=== PATIENT | female | born 1990 | race African-American/Black ===

== ENCOUNTER 2017-05-02 16:40 | Emergency (ER) | payer SELFPAY ==
[~2017-05-02] VITALS: Ht 167.6 cm; Wt 109.0 kg
[~2017-05-02 16:40] MED LIST: pain meds
[2017-05-02] MEDS ORDERED: ONDANSETRON HCL 4MG/2ML VIAL IV STA (21:24)
[2017-05-02] MEDS ORDERED: SODIUM CHLORIDE 0.9% 1,000 ML IV ONE (21:24)
[2017-05-02] MEDS ORDERED: MORPHINE SULFATE 4 MG/ML CPJ (NOT FOR IM USE) IV STA (21:24)
[2017-05-02] MEDS ORDERED: LIDOCAINE HCL 1%/EPI 1:200,000 30 ML VIAL MC ONE (21:30)
[2017-05-02] MEDS ORDERED: CEFAZOLIN 1000MG PREMIX 50 ML IV ONE (21:30)
[2017-05-02 21:59] LABS: BASOPHILS % 0.5 % (0.0-2.0); EOSINOPHILS % 2.1 % (0.0-5.0); HEMATOCRIT. 37.4 % (36.0-48.0); HEMOGLOBIN. 12.1 g/dL (12.0-16.0); LYMPHOCYTES % 25.7 % (20.0-50.0); MEAN CORPUSCULAR HEMOGLOBIN 24.5 pg (28.0-32.0); MEAN CORPUSCULAR VOLUME 75.7 fL (81.0-99.0); MEAN PLATELET VOLUME 8.1 fl (7.4-10.4); MONOCYTES % 3.7 % (2.0-8.0); PLATELET 352 x1000/uL (130-400); RED BLOOD CELL COUNT 4.94 mill/uL (4.2-5.4); RED CELL DISTRIBUTION WIDTH 15.4 % (11.6-14.6)
[2017-05-02 22:01] LABS: CHLORIDE 100 mEq/L (98-107)
[2017-05-02 22:09] LABS: CARBON DIOXIDE 25 mEq/L (21-32)
[2017-05-02 22:23] LABS: HCG SCREEN NEGATIVE
[2017-05-02 23:09] VITALS: BP 159/82
[2017-05-02] MEDS ORDERED: MORPHINE SULFATE 4 MG/ML CPJ (NOT FOR IM USE) IV ONE (23:15)
[2017-05-02] MEDS ORDERED: ONDANSETRON HCL 4MG/2ML VIAL IV ONE (23:15)
[2017-05-02] MEDS ORDERED: KETOROLAC 30MG/ML VIAL IV ONE (23:15)
== END 2017-05-03 00:30 | disposition home or self-care (01) ==
LOC: ER 21:30
DX: L02.211 Cutaneous abscess of abdominal wall (principal); E11.65 Type 2 diabetes mellitus with hyperglycemia; F17.210 Nicotine dependence, cigarettes, uncomplicated; F12.10 Cannabis abuse, uncomplicated; Z88.6 Allergy status to analgesic agent; Z88.2 Allergy status to sulfonamides
CPT/HCPCS: 10060; 36415; 80053; 84703; 85025; 96365; 96375; 96376; 99285; J0690; J1885; J2270; J2405; J7030; Z7610

== ENCOUNTER 2017-05-07 09:18 | Emergency (ER) | payer SELFPAY ==
[~2017-05-07] VITALS: Ht 167.6 cm; Wt 109.0 kg
[2017-05-07 12:13] VITALS: BP 138/78
== END 2017-05-07 14:58 | disposition home or self-care (01) ==
LOC: ER 13:05
DX: L02.211 Cutaneous abscess of abdominal wall (principal); F12.10 Cannabis abuse, uncomplicated; Z88.2 Allergy status to sulfonamides; Z88.5 Allergy status to narcotic agent
CPT/HCPCS: 99283; Z7610

== ENCOUNTER 2017-09-28 10:20 | Emergency (ER) | payer MEDICAID ==
[~2017-09-28] VITALS: Ht 167.6 cm; Wt 105.0 kg
[2017-09-28] MEDS ORDERED: LIDOCAINE HCL 1%/EPI 1:200,000 30 ML VIAL MC ONE (14:15)
[2017-09-28] MEDS ORDERED: POVIDONE-IODINE 10% TOPICAL SOLN 240ML TOP ONE (14:15)
[2017-09-28] MEDS ORDERED: IBUPROFEN 600MG TABLET PO ONE (14:15)
[2017-09-28] MEDS ORDERED: HYDROCODONE/ACETAMINOPHEN 5/325MG TABLET PO ONE (15:15)
[2017-09-28 15:57] VITALS: BP 145/91
== END 2017-09-28 16:00 | disposition home or self-care (01) ==
LOC: ER 12:27
DX: N76.4 Abscess of vulva (principal); F12.10 Cannabis abuse, uncomplicated; Z88.6 Allergy status to analgesic agent; Z88.2 Allergy status to sulfonamides
CPT/HCPCS: 10060; 99283; A4246

== ENCOUNTER 2017-10-01 07:33 | Emergency (ER) | payer MEDICAID ==
[~2017-10-01] VITALS: Ht 167.6 cm; Wt 109.0 kg
[2017-10-01 08:00] VITALS: BP 167/99
[2017-10-01] MEDS ORDERED: LIDOCAINE HCL 1% 20ML VIAL (Pyxis) INJ INFIL ONE (10:30)
== END 2017-10-01 11:43 | disposition home or self-care (01) ==
LOC: ER 07:36
DX: L02.31 Cutaneous abscess of buttock (principal); F12.10 Cannabis abuse, uncomplicated; Z88.5 Allergy status to narcotic agent; Z88.2 Allergy status to sulfonamides
CPT/HCPCS: 10060; 99283; J3490

== ENCOUNTER 2018-04-24 20:14 | Emergency (ER) | payer MEDICAID ==
[~2018-04-24] VITALS: Ht 165.1 cm; Wt 104.0 kg
[2018-04-24] MEDS ORDERED: LIDOCAINE HCL/PF 1% 10 MG/ML 5ML VIAL IJ ONE (22:45)
[2018-04-24] MEDS ORDERED: KETOROLAC 60MG/2ML VIAL IM STA (22:45)
[2018-04-24] MEDS ORDERED: BACITRACIN ZINC OINT UDPKT TOP ONE (22:45)
[2018-04-25 00:07] VITALS: BP 138/92
== END 2018-04-25 00:18 | disposition home or self-care (01) ==
LOC: ER 21:36
DX: N61.1 Abscess of the breast and nipple (principal); F12.10 Cannabis abuse, uncomplicated; Z88.2 Allergy status to sulfonamides; Z88.5 Allergy status to narcotic agent; Z79.899 Other long term (current) drug therapy
CPT/HCPCS: 10060; 96372; 99284; J1885; J3490; Z7610

== ENCOUNTER 2019-04-05 04:01 | Emergency (ER) | payer MEDICAID ==
[~2019-04-05] VITALS: Ht 165.1 cm; Wt 109.0 kg
[2019-04-05] MEDS ORDERED: SODIUM CHLORIDE 0.9% 1000ML BAG (SEPSIS BOLUS) IV ONE (04:30)
[2019-04-05 04:45] LABS: BASOPHILS % 0.6 % (0.0-2.0); EOSINOPHILS % 1.5 % (0.0-5.0); HEMATOCRIT. 33.4 % (36.0-48.0); HEMOGLOBIN. 11.1 g/dL (12.0-16.0); LYMPHOCYTES % 18.5 % (20.0-50.0); MEAN CORPUSCULAR HEMOGLOBIN 25.7 pg (28.0-32.0); MONOCYTES % 3.8 % (2.0-8.0); NEUTROPHILS % 75.6 % (40.0-76.0); PLATELET 395 x1000/uL (130-400); RED BLOOD CELL COUNT 4.34 mill/uL (4.2-5.4)
[2019-04-05 04:52] LABS: CHLORIDE 101 mEq/L (98-107)
[2019-04-05] MEDS ORDERED: INSULIN REGULAR (HUMULIN R) 300UNITS/3ML SUBCUT ONE (07:15)
[2019-04-05] MEDS ORDERED: BACITRACIN ZINC OINT UDPKT TOP ONE (07:15)
[2019-04-05] MEDS ORDERED: CLINDAMYCIN 600 MG in DEXTROSE 5% WATER 50 ML IV ONE (07:15)
[2019-04-05] MEDS ORDERED: LIDOCAINE HCL/PF 1% 10 MG/ML 5ML VIAL IJ ONE (07:15)
[2019-04-05 07:35] LABS: CLARITY URINE CLEAR (CLEAR); COLOR URINE YELLOW (YELLOW); KETONES URINE NEGATIVE (NEGATIVE); LEUKOCYTE ESTERASE URINE NEGATIVE (NEGATIVE); NITRITE URINE NEGATIVE (NEGATIVE); OCCULT BLOOD URINE 3+ (NEGATIVE); PH URINE 6.5 (4.5-8.0); PROTEIN URINE TRACE (NEGATIVE); SPECIFIC GRAVITY URINE 1.021 (1.005-1.030); UROBILINOGEN URINE 0.2 E.U./dL (0.2-1.0)
[2019-04-05] MEDS ORDERED: KETOROLAC 15MG/ML VIAL IV ONE (08:15)
[2019-04-05] MEDS ORDERED: CLINDAMYCIN 600MG PREMIX 50 ML IV ONE (08:45)
[2019-04-05 09:57] VITALS: BP 146/88
[2019-04-05] MEDS ORDERED: METRONIDAZOLE 500MG TABLET PO ONE (10:15)
== END 2019-04-05 11:13 | disposition home or self-care (01) ==
LOC: ER 04:01
DX: N61.1 Abscess of the breast and nipple (principal); A59.01 Trichomonal vulvovaginitis; E11.65 Type 2 diabetes mellitus with hyperglycemia; F12.10 Cannabis abuse, uncomplicated; Z76.0 Encounter for issue of repeat prescription; Z88.5 Allergy status to narcotic agent; Z88.2 Allergy status to sulfonamides; Z90.89 Acquired absence of other organs
CPT/HCPCS: 10060; 36415; 71045; 80053; 81003; 82962; 83605; 84145; 84484; 85025; 85610; 87040; 87077; 87086; 93005; 96361; 96365; 96372; 96375; 99284; J1815; J1885; J3490; J7030; Z7610; J7060

== ENCOUNTER 2019-10-17 14:20 | Emergency (ER) | payer MEDICAID ==
[~2019-10-17] VITALS: Ht 165.1 cm; Wt 118.0 kg
[2019-10-17] MEDS ORDERED: LIDOCAINE 1%/EPI 1:100,000 10 ML VIAL IJ ONE (15:45)
[2019-10-17] MEDS ORDERED: BACITRACIN ZINC OINT UDPKT TOP ONE (15:45)
[2019-10-17] MEDS ORDERED: ACETAMINOPHEN 500MG TABLET PO ONE (15:45)
[2019-10-17] MEDS ORDERED: IBUPROFEN 800MG TABLET PO ONE (15:45)
[2019-10-17] MEDS ORDERED: LIDOCAINE HCL/EPINEPHRINE 1%-EPI 1:100,000 20 ML VIAL INFIL ONE (16:00)
[2019-10-17 18:13] VITALS: BP 146/75
== END 2019-10-17 16:30 | disposition home or self-care (01) ==
LOC: ER 14:20
DX: L05.01 Pilonidal cyst with abscess (principal); R50.9 Fever, unspecified; F12.10 Cannabis abuse, uncomplicated; Z88.2 Allergy status to sulfonamides; Z88.5 Allergy status to narcotic agent
CPT/HCPCS: 10080; 81025; 87804; 99284; J3490

== ENCOUNTER 2019-10-21 22:25 | Inpatient (IN) | payer MEDICAID ==
[~2019-10-21] VITALS: Ht 165.1 cm; Wt 112.9 kg
[2019-10-22] MEDS ORDERED: KETOROLAC 30MG/ML VIAL IV STA (00:51)
[2019-10-22] MEDS ORDERED: SODIUM CHLORIDE 0.9% 1,000 ML IV ONE (00:51)
[2019-10-22] MEDS ORDERED: ONDANSETRON HCL 4MG/2ML INJ IV STA (00:51)
[2019-10-22] MEDS ORDERED: CLINDAMYCIN 600 MG in DEXTROSE 5% WATER 50 ML IV ONE (01:00)
[2019-10-22] MEDS ORDERED: CLINDAMYCIN 600MG PREMIX 50 ML IV ONE (02:00)
[2019-10-22 02:06] LABS: CHLORIDE 97 mEq/L (98-107)
[2019-10-22 02:06] LABS: CLARITY URINE CLOUDY (CLEAR); COLOR URINE YELLOW (YELLOW); KETONES URINE 2+ (NEGATIVE); LEUKOCYTE ESTERASE URINE 1+ (NEGATIVE); NITRITE URINE NEGATIVE (NEGATIVE); OCCULT BLOOD URINE 3+ (NEGATIVE); PROTEIN URINE 2+ (NEGATIVE); SPECIFIC GRAVITY URINE 1.035 (1.005-1.030)
[2019-10-22 02:12] LABS: BASOPHILS % 0.6 % (0.0-2.0); EOSINOPHILS % 1.4 % (0.0-5.0); HEMATOCRIT. 32.6 % (36.0-48.0); HEMOGLOBIN. 10.7 g/dL (12.0-16.0); LYMPHOCYTES % 20.6 % (20.0-50.0); MEAN CORPUSCULAR HEMOGLOBIN 24.5 pg (28.0-32.0); MEAN CORPUSCULAR VOLUME 74.7 fL (81.0-99.0); MEAN PLATELET VOLUME 7.7 fl (7.4-10.4); NEUTROPHILS % 71.4 % (40.0-76.0); PLATELET 558 x1000/uL (130-400); RED BLOOD CELL COUNT 4.37 mill/uL (4.2-5.4); RED CELL DISTRIBUTION WIDTH 15.1 % (11.6-14.6)
[2019-10-22] MEDS ORDERED: ONDANSETRON HCL 4MG/2ML INJ IV ONE (02:30)
[2019-10-22] MEDS ORDERED: IPRATROPIUM/ALBUTEROL 0.5-3(2.5)MG/3ML NEB NEB PRN (06:30)
[2019-10-22] MEDS ORDERED: DIPHENHYDRAMINE 50MG/ML VIAL IV PRN (06:30)
[2019-10-22] MEDS ORDERED: VANCOMYCIN 1 G PREMIX 200 ML IV SCH (06:30)
[2019-10-22] MEDS ORDERED: ACETAMINOPHEN 325MG TABLET PO PRN (06:30)
[2019-10-22] MEDS ORDERED: DEXTROSE 50% WATER 50ML SYRINGE IV PRN (06:30)
[2019-10-22] MEDS ORDERED: ENOXAPARIN 40MG/0.4ML SYR SUBCUT SCH (06:30)
[2019-10-22] MEDS ORDERED: DOCUSATE SODIUM 100MG CAPSULE PO PRN (06:30)
[2019-10-22] MEDS ORDERED: NA PHOS,M-B/NA PHOS,DI-BA ENEMA 118ML PR PRN (06:30)
[2019-10-22] MEDS ORDERED: IOHEXOL-300 100 ML BOTTLE ONE (07:29)
[2019-10-22] MEDS: SODIUM CHLORIDE 0.45% 1,000 ML IV SCH (07:45)
[2019-10-22] MEDS: ONDANSETRON HCL 4MG/2ML INJ IV PRN (07:57)
[2019-10-22] MEDS ORDERED: HYDRALAZINE 20MG/ML VIAL IV PRN ×2 (08:45→15:00)
[2019-10-22] MEDS ORDERED: PIPERACILLIN/TAZ 3.375G PREMIX 50 ML IV NR (08:45)
[2019-10-22] MEDS: ENOXAPARIN 30MG/0.3ML SYR SUBCUT SCH ×2 (09:00→21:06)
[2019-10-22] MEDS ORDERED: VANCOMYCIN 2,000 MG in DEXT 5% WATER 500 ML IV NR (09:00)
[2019-10-22] MEDS: BLOOD SUGAR DIAGNOSTIC STRIP TEST SCH ×4 (09:21→21:06)
[2019-10-22] MEDS: INSULIN LISPRO 100 UNITS/ML SUBCUT SCH ×4 (09:29→21:05)
[2019-10-22] MEDS: HYDROCODONE/ACETAMINOPHEN 10/325MG TABLET PO PRN (11:09)
[2019-10-22] MEDS: MAGNESIUM/ALUMINUM HYDROXIDE/SIMETHICONE 30ML UDC PO PRN (12:33)
[2019-10-22] MEDS: CLONIDINE 0.1MG TABLET PO PRN (13:50)
[2019-10-22] MEDS: SODIUM CHLORIDE 0.9% INJ 3ML FLUSH IVF SCH ×2 (14:00→21:06)
[2019-10-22] MEDS ORDERED: INSULIN LISPRO 100 UNITS/ML SUBCUT NR (14:45)
[2019-10-22 16:00] VITALS: BP 189/99
[2019-10-22] MEDS: MORPHINE SULFATE 2 MG/ML CPJ (NOT FOR IM USE) IV PRN (16:43)
[2019-10-22] MEDS: LORAZEPAM 2MG/ML CPJ IV PRN (16:43)
[2019-10-22] MEDS: PIPERACILLIN/TAZ 3.375G PREMIX 50 ML IV SCH (17:29)
[2019-10-22 19:00] VITALS: BP 149/95
[2019-10-22 20:00] VITALS: BP 155/85
[2019-10-22] MEDS: VANCOMYCIN 1,500 MG in DEXT 5% WATER 250 ML IV SCH (23:30)
[2019-10-23] VITALS: BP 144/71
[2019-10-23] MEDS: PIPERACILLIN/TAZ 3.375G PREMIX 50 ML IV SCH ×4 (00:27→20:56)
[2019-10-23] MEDS: SODIUM CHLORIDE 0.45% 1,000 ML IV SCH ×2 (02:40→21:30)
[2019-10-23 04:00] VITALS: BP 169/84
[2019-10-23] MEDS: ONDANSETRON HCL 4MG/2ML INJ IV PRN (04:47)
[2019-10-23] MEDS: MORPHINE SULFATE 2 MG/ML CPJ (NOT FOR IM USE) IV PRN ×2 (04:47→20:42)
[2019-10-23] MEDS: SODIUM CHLORIDE 0.9% INJ 3ML FLUSH IVF SCH ×3 (06:09→21:30)
[2019-10-23] MEDS: BLOOD SUGAR DIAGNOSTIC STRIP TEST SCH ×4 (07:40→20:56)
[2019-10-23 08:08] VITALS: BP 159/90
[2019-10-23 08:45] LABS: BASOPHILS % 0.5 % (0.0-2.0); EOSINOPHILS % 3.1 % (0.0-5.0); HEMATOCRIT. 31.9 % (36.0-48.0); HEMOGLOBIN. 10.7 g/dL (12.0-16.0); LYMPHOCYTES % 16.1 % (20.0-50.0); MEAN CORPUSCULAR HEMOGLOBIN 24.9 pg (28.0-32.0); MEAN CORPUSCULAR VOLUME 74.4 fL (81.0-99.0); MEAN PLATELET VOLUME 7.7 fl (7.4-10.4); MONOCYTES % 5.9 % (2.0-8.0); NEUTROPHILS % 74.4 % (40.0-76.0); PLATELET 492 x1000/uL (130-400); RED BLOOD CELL COUNT 4.29 mill/uL (4.2-5.4); RED CELL DISTRIBUTION WIDTH 15.2 % (11.6-14.6)
[2019-10-23 09:03] LABS: CHLORIDE 95 mEq/L (98-107)
[2019-10-23] MEDS: ENOXAPARIN 30MG/0.3ML SYR SUBCUT SCH ×2 (09:11→21:31)
[2019-10-23] MEDS: INSULIN LISPRO 100 UNITS/ML SUBCUT SCH ×4 (09:12→22:30)
[2019-10-23 10:11] VITALS: BP 159/90
[2019-10-23 12:00] VITALS: BP 163/87
[2019-10-23] MEDS: VANCOMYCIN 1,500 MG in DEXT 5% WATER 250 ML IV SCH ×2 (12:50→22:40)
[2019-10-23] MEDS: MAGNESIUM/ALUMINUM HYDROXIDE/SIMETHICONE 30ML UDC PO PRN (13:33)
[2019-10-23] MEDS: CLONIDINE 0.1MG TABLET PO PRN (13:34)
[2019-10-23] MEDS: HYDROCODONE/ACETAMINOPHEN 10/325MG TABLET PO PRN (13:34)
[2019-10-23 16:00] VITALS: BP 133/91
[2019-10-23] MEDS: LORAZEPAM 2MG/ML CPJ IV PRN (22:00)
[2019-10-23] MEDS: GUAIFENESIN 200MG/10ML SUGAR FREE UDC PO PRN (22:40)
[2019-10-24 00:32] VITALS: BP 166/86
[2019-10-24] MEDS: MORPHINE SULFATE 2 MG/ML CPJ (NOT FOR IM USE) IV PRN ×3 (01:13→23:31)
[2019-10-24] MEDS: CLONIDINE 0.1MG TABLET PO PRN (01:16)
[2019-10-24 04:00] VITALS: BP 134/74
[2019-10-24] MEDS: SODIUM CHLORIDE 0.9% INJ 3ML FLUSH IVF SCH ×3 (05:15→22:00)
[2019-10-24] MEDS: PIPERACILLIN/TAZOBACTAM 3.375 G in DEXT 5% WATER 100 ML IV SCH ×2 (05:50→12:57)
[2019-10-24] MEDS: GUAIFENESIN 200MG/10ML SUGAR FREE UDC PO PRN ×2 (05:50→20:39)
[2019-10-24] MEDS: BLOOD SUGAR DIAGNOSTIC STRIP TEST SCH ×4 (07:30→20:39)
[2019-10-24 08:00] VITALS: BP 147/83
[2019-10-24] MEDS: ENOXAPARIN 30MG/0.3ML SYR SUBCUT SCH ×2 (09:05→20:39)
[2019-10-24] MEDS: INSULIN LISPRO 100 UNITS/ML SUBCUT SCH ×5 (09:08→20:38)
[2019-10-24 09:50] LABS: BASOPHILS % 0.3 % (0.0-2.0); EOSINOPHILS % 2.5 % (0.0-5.0); HEMATOCRIT. 30.9 % (36.0-48.0); HEMOGLOBIN. 10.4 g/dL (12.0-16.0); LYMPHOCYTES % 22.5 % (20.0-50.0); MEAN CORPUSCULAR VOLUME 73.9 fL (81.0-99.0); MEAN PLATELET VOLUME 7.7 fl (7.4-10.4); MONOCYTES % 6.8 % (2.0-8.0); NEUTROPHILS % 67.9 % (40.0-76.0); PLATELET 413 x1000/uL (130-400); RED BLOOD CELL COUNT 4.18 mill/uL (4.2-5.4)
[2019-10-24] MEDS: VANCOMYCIN 1,500 MG in DEXT 5% WATER 250 ML IV SCH (10:42)
[2019-10-24 12:00] VITALS: BP 134/78
[2019-10-24] MEDS ORDERED: DEXTROSE 50% WATER 50ML SYRINGE IV PRN (14:30)
[2019-10-24 16:00] VITALS: BP 130/68
[2019-10-24] MEDS ORDERED: PENICILLIN G POTASSIUM 5MMU in DEXTROSE 5% WATER 100ML IV SCH (16:00)
[2019-10-24] MEDS: SODIUM CHLORIDE 0.45% 1,000 ML IV SCH (18:02)
[2019-10-24 20:00] VITALS: BP 145/78
[2019-10-24] MEDS: DEXT IV SCH (23:31)
[2019-10-24] MEDS: WATER IV SCH (23:31)
[2019-10-24] MEDS: PENICILLIN POTASSIUM IV SCH (23:31)
[2019-10-24] MEDS: HYDROCODONE/ACETAMINOPHEN 10/325MG TABLET PO PRN (23:49)
[2019-10-25] VITALS: BP 165/88
[2019-10-25 04:00] VITALS: BP 146/85
[2019-10-25] MEDS: SODIUM CHLORIDE 0.9% INJ 3ML FLUSH IVF SCH (06:00)
[2019-10-25] MEDS ORDERED: BACITRACIN 15GM TUBE TOP ONE (06:59)
[2019-10-25] MEDS ORDERED: NORMAL SALINE 0.9% 10 ML SYR ONE (06:59)
[2019-10-25] MEDS ORDERED: BACITRACIN 50,000 UNITS/VIAL ONE (07:00)
[2019-10-25] MEDS ORDERED: BUPIVACAINE HCL 0.5% (5MG/ML) 50ML ONE (07:00)
[2019-10-25] MEDS: BLOOD SUGAR DIAGNOSTIC STRIP TEST SCH (07:40)
[2019-10-25] MEDS: INSULIN LISPRO 100 UNITS/ML SUBCUT SCH (08:10)
[2019-10-25] MEDS: HYDROMORPHONE HCL/PF 2MG/ML CPJ IV PRN ×4 (09:01→10:09)
[2019-10-25] MEDS: DEXT IV SCH ×2 (11:10→11:26)
[2019-10-25] MEDS: PENICILLIN POTASSIUM IV SCH ×2 (11:10→11:26)
[2019-10-25] MEDS: WATER IV SCH ×2 (11:10→11:26)
[2019-10-25] MEDS: ENOXAPARIN 30MG/0.3ML SYR SUBCUT SCH (11:11)
[2019-10-25 12:00] VITALS: BP 164/94
[2019-10-25 14:37] VITALS: BP 150/86
== END 2019-10-25 15:23 | disposition home health service (06) | DRG 383 ==
LOC: ER 22:25 → 7WST 10-22 05:47 → ENRESERV 10-22 13:07
PROVIDERS: ADMIT Internal Medicine; ATTEND Internal Medicine
PROC: 0H98XZZ Drainage of Buttock Skin, External Approach (ICD-10-PCS; 2019-10-22)
PROC: 0JB70ZZ Excision of Back Subcutaneous Tissue and Fascia, Open Approach (ICD-10-PCS; principal; 2019-10-25)
DX: L05.01 Pilonidal cyst with abscess (principal); E44.0 Moderate protein-calorie malnutrition; E66.01 Morbid (severe) obesity due to excess calories; R73.9 Hyperglycemia, unspecified; N39.0 Urinary tract infection, site not specified; Z68.41 Body mass index [BMI] 40.0-44.9, adult; Z88.6 Allergy status to analgesic agent; Z88.2 Allergy status to sulfonamides; Z79.899 Other long term (current) drug therapy
CPT/HCPCS: 36415; 72193; 80048; 80053; 80202; 81003; 82962; 83036; 85025; 87070; 87077; 88304; 93970; 96365; 99285; J0330; J0360; J1170; J1200; J1650; J1815; J1885; J2060; J2250; J2270; J2405; J2540; J2543; J2704; J3010; J3370; J3490; J7030; J7060; Q9967

== ENCOUNTER 2020-05-20 00:36 | Emergency (ER) | payer MEDICAID ==
[~2020-05-20] VITALS: Ht 167.6 cm; Wt 100.0 kg
[2020-05-20 00:41] VITALS: BP 180/102
[2020-05-20] MEDS ORDERED: KETOROLAC 15MG/ML VIAL IV ONE (02:15)
== END 2020-05-20 02:17 | disposition left against medical advice (07) ==
LOC: ER 00:36
DX: J86.9 Pyothorax without fistula (principal); F12.10 Cannabis abuse, uncomplicated; Z88.2 Allergy status to sulfonamides; Z88.6 Allergy status to analgesic agent; Z90.89 Acquired absence of other organs
CPT/HCPCS: 99281